=== PATIENT | male | born 1985 ===

== ENCOUNTER 2019-08-11 20:16 | Inpatient (IN) | payer OTHER ==
[2019-08-11] VITALS (102 sets, daily range): BP systolic 134–144; BP diastolic 86–109; PULSE 68–99; TEMP 98.3; O2SAT 85–100
[~2019-08-11] VITALS: Wt 107.3 kg
--- NOTE | 2019-08-11 21:08 | NUR ---
Patient arrived to the unit via stretcher; accompanied with PACU nurses and WEL[employer] APPRENTICE. Will recover in ICU. Upon arrival patient is alert and oriented reporting 6/10 pain in throat. VS stable, although bp slightly elevated. PACU nurse administering PRN pain and anti-hypertensive. Patient requesting water;Ok'd per Dr. Killian to give water to drink. No bleeding from mouth noted at this time; will continue to monitor.
[2019-08-11 21:40] LABS: HEMATOCRIT 43.8 % (42.0-52.0); HEMOGLOBIN 14.5 g/dl (13.5-18.0)
[2019-08-11] MEDS ORDERED: DAZIDOX10 MG PO (22:31)
[2019-08-12] VITALS (364 sets, daily range): BP systolic 115–142; BP diastolic 67–78; PULSE 54–76; TEMP 98.2–98.3; O2SAT 80–100
--- NOTE | 2019-08-12 03:00 | NUR ---
Patient resting in bed with eyes shut; VS stable. No concerns at this time.
--- NOTE | 2019-08-12 08:00 | NUR ---
Shift assessment complete at this time. Plan of care reviewed at bedside with patient. Additional time taken to address any other needs or concerns. Vitals stable at this time. Pt reports mild, tolerable throat/posterior pharynx pain and denies need for intervention at this time. Bed in low position, call light within reach, will continue to monitor.
--- NOTE | 2019-08-12 09:02 | NUR ---
hold worker met with patient to discuss discharge. Patient is an active duty soldier with insurance. Patient will discharge back his home at [facility] this morning. Patient denies any questions or concerns and states he has secured a ride home.
--- NOTE | 2019-08-12 09:57 | NUR ---
Pt discharged at this time via private vehicle to home. Discharge packet and education provided to patient. Additional time taken to answer all questions and concerns of patient.
== END 2019-08-12 09:57 | disposition home or self-care (01) | DRG 909 ==
LOC: COL.ER 20:16 → ICU 20:51
PROVIDERS: Nurse Anesthetist, Certified Registered; ADMIT Otolaryngology
PROC: 0W337ZZ Control Bleeding in Oral Cavity and Throat, Via Natural or Artificial Opening (ICD-10-PCS; principal; 2019-08-11 20:30)
DX: J95.830 Postprocedural hemorrhage of a respiratory system organ or structure following a respiratory system procedure (principal)
CPT/HCPCS: J0330; J1100; J2270; J2405; J2704; J3010; J7120